=== PATIENT | male | born 1945 | race Caucasian/White ===

== ENCOUNTER → 2018-03-02 | Outpatient (CLI) | payer OTHER ==
[~2018-03-02] MED LIST: IOPAMIDOL 370 MG/ML 200 ML INFUS..BTL INJ ONE; SODIUM CHLORIDE 0.9% 100 ML ONE
[2018-03-02 15:42] LABS: BLOOD UREA NITROGEN 10 mg/dL (7-26); BUN/CREATININE RATIO 11 (6-25); CREATININE, SERUM 0.88 mg/dL (0.72-1.25); EST GLOMERULAR FILTRATION RATE > 60 ML/MIN (60-)
--- NOTE | 2018-03-03 09:47 | Diagnostic Imaging Report ---
EXAM: CTA Chest WITH contrast. DATE: 03/02/2018 2:50 PM INDICATION: COMPARISON: 07/29/2017 CTA TECHNIQUE: CT angiogram of the chest was obtained after the administration of IV contrast. Prospective gating was performed. Images reviewed in the axial, coronal, and sagittal planes. 3D reconstructions performed on off-line workstation. IV Contrast: 100 mL Isovue-370. Total DLP: 189 mGy*cm Est. Eff. Dose DLP x 0.015 x size factor mSv (CTDIvol has been reviewed and is below limits set by [facility]). FINDINGS: Lines and Tubes: None. Lower Neck: Thyroid gland heterogeneous. Heart and Great Vessels: The pulmonary artery measure 25 mm. No pericardial effusion. No central pulmonary embolus or intracardiac filling defect identified. Aortic Annulus: Approximately 30 mm. Sinus of Valsalva: Approximately 53 mm. Ascending Aorta at level of PA: 41 mm. Mid Arch: 31 mm. Proximal Descendin mm. Mid Descendin mm. Distal Descendin mm. Other: Mild aortic atherosclerotic changes present. No dissection. Routine branching pattern of aortic arch with mild tortuosity of the distal arch and descending thoracic aorta. Lymph Nodes: No suspicious adenopathy. Lungs: Mild biapical scarring. No pneumothorax or pleural effusion. Linear and nodular opacities in the lung bases, particularly on the right, stable, suggesting atelectasis/scarring. More nodular area right lower lobe series 5 image 62 measures 12 x 11 mm, similar to previous study. Probable granuloma lingula series 5 image 42. Upper abdomen: No acute findings. Bones and Soft Tissues: No acute findings. IMPRESSION: 1. 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 One year follow-up recommended. 2. Probable scarring, some of which is nodular, in the lung bases, stable. Signed by: Dr. Jori Yin MD on 03/03/2018 9:43 AM
== END ==
LOC: CT 14:41
PROVIDERS: ATTEND Thoracic Surgery (Cardiothoracic Vascular Surgery)
DX: I71.4 Abdominal aortic aneurysm, without rupture (principal)
CPT/HCPCS: 36415; 71275; 82565; 84520; J7050; Q9967

== ENCOUNTER → 2019-03-09 | Outpatient (CLI) | payer MEDICARE ==
[~2019-03-09] MED LIST changes: +SODIUM CHLORIDE 0.9% 100 ML 100 ML ONE; -SODIUM CHLORIDE 0.9% 100 ML ONE
[2019-03-09 09:19] LABS: BLOOD UREA NITROGEN 14 mg/dL (7-26); BUN/CREATININE RATIO 15 (6-25); CREATININE, SERUM 0.94 mg/dL (0.72-1.25); EST GLOMERULAR FILTRATION RATE > 60 ML/MIN (60-)
--- NOTE | 2019-03-09 14:18 | Diagnostic Imaging Report ---
EXAM: CTA Chest WITH contrast. DATE: 03/02/2018 2:50 PM INDICATION: Aneurysm follow-up COMPARISON: 03/02/2018, 07/29/2017 CTA TECHNIQUE: CT angiogram of the chest was obtained after the administration of IV contrast. Prospective gating was performed. Images reviewed in the axial, coronal, and sagittal planes. 3D reconstructions performed on off-line workstation. Reformatted axial MIP images were obtained and reviewed. IV Contrast: 100 mL Isovue-370. Total DLP: 211.37 mGy*cm Est. Eff. Dose DLP x 0.015 x size factor mSv (CTDIvol has been reviewed and is below limits set by [facility]). FINDINGS: Lines and Tubes: None. Lower Neck: Thyroid gland heterogeneous. Heart and Great Vessels: The pulmonary artery measure 24 mm. No pericardial effusion. No central pulmonary embolus or intracardiac filling defect identified. Aortic Annulus: Approximately 29 mm. Sinus of Valsalva: Approximately 49 mm. Ascending Aorta at level of PA: 41 mm. Mid Arch: 32 mm. Proximal Descendin mm. Mid Descendin mm. Distal Descendin mm. Upper abdomen: 20 mm Other: Mild aortic atherosclerotic changes present. No dissection. Routine branching pattern of aortic arch with mild tortuosity of the distal arch and descending thoracic aorta. Lymph Nodes: No suspicious adenopathy. Lungs: Mild biapical scarring. No pneumothorax or pleural effusion. Linear and nodular opacities in the lung bases, particularly on the right, stable, suggesting atelectasis/scarring. More nodular area right lower lobe series 5, image 64, 11 x 13 mm, similar to previous study. Calcified granuloma lingula, series 5 image 43. Stable nodular densities in the right lower lobe measure 5 mm (series 5, image 53), and 4 mm (image 54). Upper abdomen: Included portions of the liver, spleen, pancreas, adrenals and kidneys show no focal abnormality. Bones and Soft Tissues: No acute or suspicious bony lesions. There are degenerative changes noted at the shoulders. Superficial surrounding soft tissue unremarkable. IMPRESSION: 1. Ectasia/mild aneurysmal dilatation aortic root and ascending aorta measuring 49 and 41 mm respectively, stable. One year follow-up recommended. 2. Probable scarring, some of which is nodular, in the lung bases, stable. Signed by: Dr. Isaac Barrera M.D. on 03/09/2019 2:15 PM
== END ==
LOC: CT 08:37
PROVIDERS: ATTEND Thoracic Surgery (Cardiothoracic Vascular Surgery)
DX: I71.2 Thoracic aortic aneurysm, without rupture (principal)
CPT/HCPCS: 36415; 71275; 82565; 84520; Q9967